=== PATIENT | female | born 1995 | race Caucasian/White ===

== ENCOUNTER 2018-12-11 07:28 | Inpatient (IN) | payer BC ==
[~2018-12-11] VITALS: Ht 170.2 cm; Wt 72.4 kg
[2018-12-11] VITALS (14 sets, daily range): BP systolic 95–113; BP diastolic 53–72; BMI 19.3
[2018-12-11] MEDS ORDERED: HUMALOG INSULIN PUMP (07:35)
[2018-12-11 08:40] LABS: BASOPHILS 0.1 % (0-2); EOSINOPHILS 0.2 % (0-7); HEMATOCRIT 41.8 % (36.0-48.0); HEMOGLOBIN 14.3 g/dL (12-16); IMMATURE GRANULOCYTES 0.3 % (0-5); LYMPHOCYTES 10.7 % (15-50); MCH 31.2 pg (26.0-34.0); MCHC 34.2 g/dL (31.0-37.0); MCV 91.3 fL (80.0-100.0); MEAN PLATELET VOLUME 11.4 fL (7.4-10.4); MONOCYTES 0.6 % (2-11); NEUTROPHILS 88.1 % (40-80); PLATELET COUNT 222 10x3/uL (130-400); RBC 4.58 10x6/uL (4.00-5.40); RDW 11.7 % (11.5-14.5)
[2018-12-11 08:41] LABS: KETONE - SERUM SMALL mg/dL (NEGATIVE)
[2018-12-11 08:55] LABS: ALBUMIN 3.9 g/dL (3.4-5.0); ALKALINE PHOSPHATASE 136 U/L (46-116); ALT (SGPT) 25 U/L (10-68); BILIRUBIN - TOTAL 0.99 mg/dL (0.2-1.3); CALCIUM 9.1 mg/dL (8.5-10.1); CARBON DIOXIDE 15.6 mmol/L (21.0-32.0); CHLORIDE - SERUM 93 mmol/L (98-107); CREATININE - SERUM 0.9 mg/dL (0.6-1.3); MAGNESIUM - SERUM 1.9 mg/dL (1.8-2.4); POTASSIUM - SERUM 4.8 mmol/L (3.5-5.1); PROTEIN - SERUM 8.5 g/dL (6.4-8.2); SODIUM 131 mmol/L (136-145); UREA NITROGEN 16 mg/dL (7-18); eGFR NON AFRICAN AMERICAN 82 mL/min (90-120)
[2018-12-11 08:56] LABS: CALC OSMOLALITY 286 mosm/kg (275-300)
[2018-12-11 08:58] LABS: GLUCOSE 518 mg/dL (74-106)
[2018-12-11 11:27] LABS: APPEARANCE HAZY (CLEAR); COLOR YELLOW (YELLOW); GLUCOSE 1000 mg/dL (NEGATIVE); KETONE LARGE mg/dL (NEGATIVE); NITRITE NEGATIVE (NEGATIVE); PROTEIN NEGATIVE (NEGATIVE); SPECIFIC GRAVITY 1.015 (1.005-1.020)
[2018-12-11 11:28] LABS: BACTERIA FEW /hpf (NONE SEEN); BILIRUBIN NEGATIVE (NEGATIVE); EPITHELIAL CELLS OCC /hpf (0-5); MUCUS <1+ /lpf (NONE SEEN); UROBILINOGEN NORMAL (NORMAL); YEAST RARE /hpf (NONE SEEN)
--- NOTE | 2018-12-11 11:39 | NUR ---
FSBS= 238 MG/DL
[2018-12-11 12:14] LABS: CALC OSMOLALITY 277 mosm/kg (275-300); CALCIUM 8.3 mg/dL (8.5-10.1); CARBON DIOXIDE 15.8 mmol/L (21.0-32.0); CHLORIDE - SERUM 99 mmol/L (98-107); CREATININE - SERUM 0.8 mg/dL (0.6-1.3); MAGNESIUM - SERUM 1.9 mg/dL (1.8-2.4); POTASSIUM - SERUM 4.7 mmol/L (3.5-5.1); SODIUM 134 mmol/L (136-145); UREA NITROGEN 15 mg/dL (7-18); eGFR NON AFRICAN AMERICAN > 90 mL/min (90-120)
--- NOTE | 2018-12-11 12:14 | NUR ---
0.45% NACL w/ 20meq KCl stopped, and 0.45% and dextrose 5% w/ 20meq KCl started per EMar due to pt's BS being under 250. Pt's insulin drip adjusted from 7.38 u/hr to 7.12 u/hr.
[2018-12-11 12:15] LABS: GLUCOSE 253 mg/dL (74-106)
--- NOTE | 2018-12-11 14:18 | NUR ---
PT ARRIVED FROM ER ALERT AND ORIENTED ON ROOM AIR, HR NSR-SINUS TACH, DENIES PAIN AND NAUSEA, PIV TO R HAND WITH INSULIN GTT AND D51/2NS 20KCL 100ML/HR, CALLED DR CANALES AND VERIFIED TO RUN THE INFUSING BAG OF FLUIDS THEN CHANGE TO 1/2NS 20KCL, MOTHER IN ROOM, SPOKE WITH DR CANALES, NO NEEDS AT THIS TIME, SECURITY CODE SET UP, CALL LIGHT WITHIN REACH, WILL CONTINUE TO MONITOR
--- NOTE | 2018-12-11 16:00 | NUR ---
MOTHER HERE FOR VISITATION, DENIES ALL NEEDS
[2018-12-11 16:14] LABS: CALC OSMOLALITY 271 mosm/kg (275-300); CARBON DIOXIDE 19.6 mmol/L (21.0-32.0); CHLORIDE - SERUM 103 mmol/L (98-107); CREATININE - SERUM 0.6 mg/dL (0.6-1.3); MAGNESIUM - SERUM 1.9 mg/dL (1.8-2.4); POTASSIUM - SERUM 4.4 mmol/L (3.5-5.1); SODIUM 136 mmol/L (136-145); UREA NITROGEN 12 mg/dL (7-18); eGFR NON AFRICAN AMERICAN > 90 mL/min (90-120)
[2018-12-11 16:15] LABS: GLUCOSE 95 mg/dL (74-106)
--- NOTE | 2018-12-11 17:30 | NUR ---
NOTIFIED DR CANALES OF FSBS 77, ORDERS TO CONTINUE INSULIN GTT PER PROTOCOL AND FEED DINNER DESPITE NURSING MESSAGE OF NPO UNTIL ANION GAP LESS THAN 13
--- NOTE | 2018-12-11 19:30 | NUR ---
REPORT RECIEVED, SHIFT ASSESSMENT COMPLETYE PER FLOW SHEET, PT AAOx4, DENIES PAIN OR NEEDS AT THIS TIME, VSS, PIV INFUSING MEDS PER MAR/ORDERS, PT REPOSITIONES SELF, WILL CONTINUE TO MONITOR
[2018-12-11 20:17] LABS: ANION GAP 10.9 mmol/L (8-16); CARBON DIOXIDE 23.8 mmol/L (21.0-32.0); MAGNESIUM - SERUM 1.8 mg/dL (1.8-2.4)
[2018-12-11 20:22] LABS: POTASSIUM - SERUM 3.7 mmol/L (3.5-5.1)
--- NOTE | 2018-12-11 20:30 | NUR ---
PT MOTHER CALLED, UPDATE GIVEN, NO FURTHER NEEDS AT THIS TIME
--- NOTE | 2018-12-11 21:30 | NUR ---
PT OOB TO BATHROOM, AMBULATES WITHOUT ASSIST, MEDS GIVEN PER MAR/ORDERS, VSS, PT DENIES PAIN OR NEEDS AT THIS TIME
--- NOTE | 2018-12-11 23:00 | NUR ---
REASSESSMENT COMPLETE SEE FLOW SHEET, NO ACUTE DISTRES OR CHANGE NOTED, NSR ON CM, VSS, PT RESTING WITH EYES CLOSED, WAKES WHEN NURSE ENTERS ROOM, AAOx4, DENIES PAIN OR NEEDS AT THIS TIME, MEDS INFUSING PER MAR/ORDERS, WILL CONTINUE TO MONITOR
[2018-12-12] VITALS (16 sets, daily range): BP systolic 93–113; BP diastolic 52–80; Ht 170.2 cm; Wt 72.4 kg
[2018-12-12 00:30] LABS: CALC OSMOLALITY 275 mosm/kg (275-300); CARBON DIOXIDE 22.8 mmol/L (21.0-32.0); CHLORIDE - SERUM 104 mmol/L (98-107); CREATININE - SERUM 0.7 mg/dL (0.6-1.3); GLUCOSE 94 mg/dL (74-106); POTASSIUM - SERUM 3.9 mmol/L (3.5-5.1); SODIUM 138 mmol/L (136-145); UREA NITROGEN 12 mg/dL (7-18); eGFR NON AFRICAN AMERICAN > 90 mL/min (90-120)
[2018-12-12 05:08] LABS: CALC OSMOLALITY 271 mosm/kg (275-300); CARBON DIOXIDE 21.8 mmol/L (21.0-32.0); CHLORIDE - SERUM 105 mmol/L (98-107); CREATININE - SERUM 0.7 mg/dL (0.6-1.3); GLUCOSE 91 mg/dL (74-106); POTASSIUM - SERUM 3.9 mmol/L (3.5-5.1); SODIUM 136 mmol/L (136-145); UREA NITROGEN 13 mg/dL (7-18); eGFR NON AFRICAN AMERICAN > 90 mL/min (90-120)
[2018-12-12 05:22] LABS: BASOPHILS 0.2 % (0-2); EOSINOPHILS 1.6 % (0-7); HEMATOCRIT 36.3 % (36.0-48.0); HEMOGLOBIN 12.1 g/dL (12-16); LYMPHOCYTES 42.2 % (15-50); MCH 30.3 pg (26.0-34.0); MCHC 33.3 g/dL (31.0-37.0); MCV 90.8 fL (80.0-100.0); MEAN PLATELET VOLUME 10.4 fL (7.4-10.4); MONOCYTES 6.4 % (2-11); NEUTROPHILS 49.6 % (40-80); PLATELET COUNT 184 10x3/uL (130-400); RDW 11.6 % (11.5-14.5)
[2018-12-12 05:23] LABS: WBC 5.5 10x3/uL (4.8-10.8)
--- NOTE | 2018-12-12 06:43 | NUR ---
CALLED , UPDATE GIVEN, INFORMED OF ANION GAP OF 13.10 AND HOURLY FSBG LEVELS, ORDERS RECEIVED TO D/C INSULIN DRIP, START Q2HR FSBG CHECKS, NO FURTHER AT THIS TIME, PT VSS, WILL CONTINUE TO MONITOR
--- NOTE | 2018-12-12 07:30 | NUR ---
PT RECIEVED ALERT AN DORIENTED ON ROOM AIR VSS DENIES PAIN PIV TO R HAND WITH 1/2NS 20KCL 100ML/HR, CONTINENT, ASSISTED TO BATHROOM TO VOID, BREAKFAST TRAY SERVED
--- NOTE | 2018-12-12 08:18 | NUR ---
CALLED DR CANALES TO NOTIFY OF FSBS 261 AND NO INSULIN ORDERS, ORDERS TO ALLOW PT TO SELF ADMINISTER PER PUMP, REVIEWED WITH PT FSBS 261 AND THAT SHE WOULD PROGRAM FOR 2 UNITS PER THE PUMP.
--- NOTE | 2018-12-12 10:24 | NUR ---
CALLED DR CANALES PT FSBS 336 AND INS PUMP WOULD GIVE 4 UNITS, PER DR CANALES ALLOW PT TO CHECK OWN FSBS Q30MIN AND TREAT WITH INS PUMP
--- NOTE | 2018-12-12 10:33 | NUR ---
Nutrition Note: Chart reviewed. Spoke with pt regarding DM. Pt refused diet education at this time and stated that she had no questions regarding nutrition. Full nutritional assmt is in Process Intervention. RD following.
--- NOTE | 2018-12-12 10:39 | NUR ---
DIETARY IN ROOM TO SPEAK WITH PT, REFUSED ANY DIABETIC EDUCATION
--- NOTE | 2018-12-12 11:17 | NUR ---
DR CANALES IN UNIT, STATED IF FSBS BECOME CONSISTENTLY UNDER 300 MAY GO TO FLOOR
--- NOTE | 2018-12-12 14:09 | NUR ---
BATH AND LINEN CHANGE DONE, PT TO TRANSFER TO 2130, NOTIFIED PT AND REPORT CALLED TO [facility]
--- NOTE | 2018-12-12 14:45 | NUR ---
PT TO FLOOR VIA WHEEL CHAIR AND HOSPITAL STAFF.
--- NOTE | 2018-12-12 20:00 | NUR ---
PT SITTING UP IN BED ON PHONE. FSBS-289. SEE FLOW SHEET. PT DENIES ANY PAIN OR NEEDS AT THIS TIME. BED LOW CALL LIGHT WITHIN REACH. WILL CONTINUE TO MONITOR.
--- NOTE | 2018-12-13 01:42 | NUR ---
WOKE PT UP FOR FSBS. FSBS-161 NO INSULIN ADMNISTERED THROUGH PUMP. PT DENIES ANY NEEDS OR PAIN AT THIS TIME. BED LOW CALL LIGHT WITHIN REACH. WILL CONTINUE TO MONITOR.
--- NOTE | 2018-12-13 04:39 | NUR ---
I have reviewed this patient and I concur with the Shift Assessment completed by the Licensed Practical Nurse today this shift.
--- NOTE | 2018-12-13 06:02 | NUR ---
PT RESTING IN BED WITH EYES CLOSED. RR EVEN AND UNLABORED. BED LOW CALL LIGHT WITHIN REACH. WILL CONTINUE TO MONITOR.
--- NOTE | 2018-12-13 07:31 | NUR ---
PT ASLEEP, DID NOT WAKE I ENTERED. CL IN REACH. SRX2. DID NOT FURTHER DISTURB AT THIS TIME.
[2018-12-13 07:51] LABS: BASOPHILS 0.2 % (0-2); EOSINOPHILS 1.7 % (0-7); HEMATOCRIT 38.5 % (36.0-48.0); HEMOGLOBIN 12.9 g/dL (12-16); LYMPHOCYTES 46.2 % (15-50); MCH 30.4 pg (26.0-34.0); MCHC 33.5 g/dL (31.0-37.0); MCV 90.8 fL (80.0-100.0); MEAN PLATELET VOLUME 10.6 fL (7.4-10.4); MONOCYTES 6.7 % (2-11); NEUTROPHILS 45.2 % (40-80); PLATELET COUNT 191 10x3/uL (130-400); RBC 4.24 10x6/uL (4.00-5.40); RDW 11.5 % (11.5-14.5)
[2018-12-13 08:02] LABS: CALC OSMOLALITY 280 mosm/kg (275-300); CALCIUM 8.2 mg/dL (8.5-10.1); CARBON DIOXIDE 26.1 mmol/L (21.0-32.0); CHLORIDE - SERUM 104 mmol/L (98-107); CREATININE - SERUM 0.6 mg/dL (0.6-1.3); POTASSIUM - SERUM 3.8 mmol/L (3.5-5.1); SODIUM 140 mmol/L (136-145); UREA NITROGEN 11 mg/dL (7-18); eGFR NON AFRICAN AMERICAN > 90 mL/min (90-120)
[2018-12-13 08:05] LABS: GLUCOSE 157 mg/dL (74-106)
[2018-12-13 10:21] VITALS: BP 110/75
[2018-12-13 12:00] VITALS: BP 113/71
--- NOTE | 2018-12-13 13:45 | NUR ---
PT AMBULATED OUT. NO COMPLAINTS.
--- NOTE | 2018-12-13 14:47 | MORECARE ---
CASE MANAGEMENT DISCHARGE SUMMARY PATIENT: LATASHA ANTHONY UNIT: [id number] ADM DATE: 12/11/18 AGE: 23 : 89 SEX: F ROOM/BED: D.2131 AUTHOR: JACKSON HE PHYSICIAN: REFERRING PHYSICIAN: ANGELITO CANALES MD DATE OF SERVICE: 12/13/18 Discharge Plan Patient Name: LATASHA ANTHONY [facility] [facility] 1995 Planned Disposition: Home Anticipated Discharge Date: 12/13/18 Discharge Date: 12/13/2018 Expected LOS: 2 Initial Reviewer: [email or web address] Initial Review Date: 12/13/2018 Generated: 12/13/18 3:47 pm Patient Name: LATASHA ANTHONY Page [id number] at 1447 All edits/amendments must be made on the electronic document DICTATION DATE: 12/13/18 1446 TRACK RIDER: CRYSTAL 12/13/18 1446 RPT#: [id number] DC DATE:12/13/18 STATUS: DIS IN [facility] [address] [place] [address] END OF REPORT
--- NOTE | 2018-12-13 14:57 | MORECARE ---
CASE MANAGEMENT DISCHARGE SUMMARY PATIENT: LATASHA ANTHONY UNIT: [id number] ADM DATE: 12/11/18 AGE: 23 : 95 SEX: F ROOM/BED: D.2131 AUTHOR: NERI,DOC PHYSICIAN: REFERRING PHYSICIAN: ANGELITO CANALES MD DATE OF SERVICE: 12/13/18 Discharge Plan Patient Name: LATASHA ANTHONY Facility: [facility]:[place] : 1995 Planned Disposition: Home Anticipated Discharge Date: 12/13/18 Discharge Date: 12/13/2018 Expected LOS: 2 Initial Reviewer: [email or web address] Initial Review Date: 12/13/2018 Generated: 12/13/18 3:57 pm Comments DCP- Discharge Planning Updated by [email or web address]: Leonard Ndiaye on 12/13/18 1:[address] Patient Name: LATASHA ANTHONY Admission Status: ER Accout number: [id number] Admission Date: 12-11-2018 : 1995 Admission Diagnosis:TYPE 1 DIABETES MELLITUS WITHOUT COMPLICATIONS Attending: ANGELITO CANALES Current LOS: 2 Anticipated DC Date: 12-13-2018 Planned Disposition: Home Primary Insurance: [employer] OUT OF STATE Discharge Planning Comments: CM MET WITH PT IN ROOM TO DISCUSS DISCHARGE PLANNING AND NEEDS. PT REPORTS LIVING AT [facility] FOR THE PAST 4 MONTHS, [facility] [place]. PT HAS INSULIN PUMP AND NO OTHER MEDICAL EQUIPMENT. PT HAS NO PRERFERRED MEDICAL EQUIPMENT PROVIDER. PT HAS NO OUTSIDE SERVICES ASSISTING IN THE HOME. CM DISCUSSED AVAILABILITY OF HOME HEALTH, REHAB SERVICES AND MEDICAL EQUIPMENT. PT DENIES DISCHARGE NEEDS, REPORTS [facility] WILL PICK HER UP FOR DISCHARGE HOME, SHE HAS PHONE NUMBER TO CALL TODAY TO ARRANGE TRANSPORTATION. Toe Puller: Leonard Ndiaye DCPIA - Discharge Planning Initial Assessment Updated by [email or web address]: Leonard Ndiaye on 12/13/18 2:48 pm * Is the patient Alert and Oriented? Yes * How many steps to enter\exit or inside your home? 2-O / 20-I * PCP [facility] [place], [place] * Pharm[facility] * Preadmission Environment Retirement * Facility Name [facility] * ADLs Independent * Equipment Other * Other Equipment INSULIN PUMP; SUPPLIES FROM [employer] * List name and contact numbers for known caregivers / representatives who currently or will assist patient after discharge: JULIANA ANTHONY, MOTHER, * Verbal permission to speak to the caregivers and representatives has been obtained from the patient. N/A * Community resources currently utilized None * Please name any agencies selected above. NONE * Additional services required to return to the preadmission environment? No * Can the patient safely return to the preadmission environment? Yes * Has this patient been hospitalized within the prior 30 days at any hospital? No Last DP export: 12/13/18 1:47 p Patient Name: LATASHA ANTHONY Page [id number] at 0476 All edits/amendments must be made on the electronic document DICTATION DATE: 12/13/181456 PRODUCTION DEPARTMENT SUPERVISOR: CRYSTAL 12/13/181456 RPT#: [id number] DC DATE:12/13/18 STATUS: DIS IN [facility] [address] [place] [address] END OF REPORT
== END 2018-12-13 13:45 | disposition home or self-care (01) | DRG 638 ==
LOC: D.ER 07:28 → D.EDHOLD 09:25 → D.CVICU 09:25 → D.M2 09:25 → D.CVICU 11:30 → D.M2 12-12 14:14
PROVIDERS: Family Medicine; ADMIT Internal Medicine Nephrology; ATTEND Internal Medicine Nephrology
DX: E10.9 Type 1 diabetes mellitus without complications (principal); F17.213 Nicotine dependence, cigarettes, with withdrawal; Z91.19 Patient's noncompliance with other medical treatment and regimen; G40.909 Epilepsy, unspecified, not intractable, without status epilepticus; Z72.0 Tobacco use